=== PATIENT | female | born 1945 | race American Indian/Alaskan Native ===

== ENCOUNTER 2021-07-29 01:54 | Inpatient (IN) | payer MEDICARE ==
[2021-07-29] MEDS ORDERED: HYDROmorphone 1 MG/1 ML INJ IV ONE (03:56)
[2021-07-29] MEDS ORDERED: ONDANSETRON 4 MG/2 ML INJ IV ONE (03:58)
[2021-07-29 04:35] LABS: Mucus,Urine FEW /HPF
[2021-07-29 04:42] LABS: Bilirubin,Urine Negative (Negative); Blood,Urine Negative (Negative); Color,Urine Yellow (Yellow); Urobilinogen,Urine < 2.0 mg/dL (<2.0)
[2021-07-29 05:26] LABS: Basophils % (Auto) 0.4 % (0.0-1.8); Eosinophils # (Auto) 0.1 K/mm3 (0.0-0.4); Eosinophils % (Auto) 1.2 % (0.0-4.3); Hematocrit 32.6 % (30.3-42.9); Hemoglobin 10.3 gm/dl (10.1-14.3); Lymphocytes # (Auto) 1.7 K/mm3 (1.2-5.4); Lymphocytes % (Auto) 22.2 % (13.4-35.0); Mean Corpuscular HGB Conc 32 % (30-34); Mean Corpuscular Volume 81 fl (79-97); Monocytes # (Auto) 0.5 K/mm3 (0.0-0.8); Platelet Count 211 K/mm3 (140-440); Red Blood Count 4.05 M/mm3 (3.65-5.03); Red Cell Distribution Width 19.6 % (13.2-15.2)
[2021-07-29 05:38] LABS: Albumin 3.4 g/dL (3.9-5); Calcium 8.2 mg/dL (8.4-10.2)
--- NOTE | 2021-07-29 06:13 | Emergency Department Report ---
ED Abdominal Pain HPI - General Chief Complaint: Abdominal Pain Stated Complaint: SEVERE STOMACH PAIN PUI?: No Source: patient, family Mode of arrival: Wheelchair Limitations: No Limitations, Physical Limitation - History of Present Illness Initial Comments: This patient presented to the emergency department for evaluation of abdominal pain which had resolved by the time she was evaluated by me. For the past several days the patient has been having diarrhea without vomiting. She is able to tolerate p.o. fluids according to the patient as well as her daughter. She denies any dizziness fever or chills. The patient is currently on antibiotics for a sinus infection and is taking prednisone prescribed by her primary care physician Complaint: abdominal pain -: days(s) Time: 02:00 Location: diffuse Radiation: none Severity: moderate Severity scale (0 -10): 9 Quality: cramping Improves With: nothing Worsens With: nothing Associated Symptoms: diarrhea. denies: fever, dysuria - Related Data Home Medications Medication Instructions Recorded Confirmed Last Taken AtorvaSTATin [Lipitor] 20 mg PO QHS 07/30/21 07/30/21 Unknown Furosemide [Lasix] 40 mg PO QDAY 07/30/21 07/30/21 Unknown Metformin HCl [metFORMIN] 1,000 mg PO BID 07/30/21 07/30/21 Unknown Pantoprazole [Protonix] 40 mg PO QDAY 07/30/21 07/30/21 Unknown carvediloL [Coreg] 6.25 mg PO BID 07/30/21 07/30/21 Unknown hydrOXYzine HCL [Atarax] 25 mg PO Q8H PRN 07/30/21 07/30/21 Unknown Allergies Allergy/AdvReac Type Severity Reaction Status Date / Time Iodine and Iodide Containing Allergy Anaphylaxis Verified 07/30/21 15:40 Produc morphine Allergy Anaphylaxis Verified 07/30/21 15:40 ED Review of Systems ROS: Stated complaint: SEVERE STOMACH PAIN Other details as noted in HPI Comment: All other systems reviewed and negative Constitutional: denies: chills, fever Eyes: denies: eye pain, eye discharge, vision change ENT: denies: ear pain, throat pain Respiratory: denies: cough, shortness of breath, wheezing Cardiovascular: denies: chest pain, palpitations Endocrine: no symptoms reported Gastrointestinal: abdominal pain, diarrhea. denies: hematemesis, melena, hematochezia Genitourinary: denies: urgency, dysuria, discharge Musculoskeletal: denies: back pain, joint swelling, arthralgia Skin: denies: rash, lesions Neurological: headache. denies: weakness, paresthesias Psychiatric: denies: anxiety, depression Hematological/Lymphatic: denies: easy bleeding, easy bruising ED Past Medical Hx - Past Medical History Previous Medical History?: Yes - Surgical History Past Surgical History?: Yes - Medications Home Medications: Home Medications Medication Instructions Recorded Confirmed Last Taken Type AtorvaSTATin [Lipitor] 20 mg PO QHS 07/30/21 07/30/21 Unknown History Furosemide [Lasix] 40 mg PO QDAY 07/30/21 07/30/21 Unknown History Metformin HCl [metFORMIN] 1,000 mg PO BID 07/30/21 07/30/21 Unknown History Pantoprazole [Protonix] 40 mg PO QDAY 07/30/21 07/30/21 Unknown History carvediloL [Coreg] 6.25 mg PO BID 07/30/21 07/30/21 Unknown History hydrOXYzine HCL [Atarax] 25 mg PO Q8H PRN 07/30/21 07/30/21 Unknown History ED Physical Exam - General Limitations: No Limitations, Physical Limitation General appearance: alert, in no apparent distress - Eye Eye exam: Present: normal appearance, PERRL, EOMI - ENT ENT exam: Present: normal exam. Absent: mucous membranes moist - Neck Neck exam: Present: normal inspection, full ROM - Respiratory Respiratory exam: Present: normal lung sounds bilaterally. Absent: respiratory distress - Cardiovascular Cardiovascular Exam: Present: regular rate, normal rhythm. Absent: systolic murmur, diastolic murmur, rubs, gallop - GI/Abdominal GI/Abdominal exam: Present: soft, normal bowel sounds. Absent: tenderness - Rectal Rectal exam: Present: deferred - Extremities Exam Extremities exam: Present: normal inspection, full ROM - Neurological Exam Neurological exam: Present: alert - Psychiatric Psychiatric exam: Present: normal affect, normal mood ED Course Vital Signs 07/29/21 07/29/21 07/29/21 02:06 02:50 03:00 Temperature 98.3 F Pulse Rate 65 Respiratory 16 Rate Blood Pressure 105/48 122/45 Blood Pressure [Left] O2 Sat by Pulse 98 100 100 Oximetry 07/29/21 07/29/21 07/29/21 03:09 03:10 03:16 Temperature 98.9 F Pulse Rate Respiratory 19 Rate Blood Pressure 122/45 Blood Pressure [Left] O2 Sat by Pulse 98 100 Oximetry 07/29/21 07/29/21 07/29/21 03:30 03:46 04:00 Temperature Pulse Rate Respiratory Rate Blood Pressure 135/49 104/50 104/50 Blood Pressure [Left] O2 Sat by Pulse 100 100 100 Oximetry 07/29/21 07/29/21 07/29/21 04:05 04:16 04:30 Temperature Pulse Rate Respiratory 15 Rate Blood Pressure 125/56 108/45 Blood Pressure [Left] O2 Sat by Pulse 100 100 Oximetry 07/29/21 07/29/21 07/29/21 04:46 05:00 05:16 Temperature Pulse Rate Respiratory Rate Blood Pressure 106/46 106/46 102/42 Blood Pressure [Left] O2 Sat by Pulse 100 100 99 Oximetry 07/29/21 07/29/21 07/29/21 05:30 05:46 06:00 Temperature Pulse Rate Respiratory Rate Blood Pressure 104/44 104/50 124/46 Blood Pressure [Left] O2 Sat by Pulse 100 100 100 Oximetry 07/29/21 07/29/21 07/29/21 06:08 06:10 06:12 Temperature 97.9 F Pulse Rate Respiratory Rate Blood Pressure 117/45 117/45 Blood Pressure [Left] O2 Sat by Pulse 100 100 Oximetry 07/29/21 07/29/21 07/29/21 06:14 06:16 06:18 Temperature Pulse Rate Respiratory Rate Blood Pressure 117/45 117/45 117/45 Blood Pressure [Left] O2 Sat by Pulse 100 98 100 Oximetry 07/29/21 07/29/21 07/29/21 06:20 06:22 06:25 Temperature Pulse Rate Respiratory Rate Blood Pressure 117/45 117/45 113/44 Blood Pressure [Left] O2 Sat by Pulse 100 100 99 Oximetry 07/29/21 07/29/21 07/29/21 06:26 06:28 06:30 Temperature Pulse Rate Respiratory Rate Blood Pressure 113/44 113/44 113/44 Blood Pressure [Left] O2 Sat by Pulse 100 99 100 Oximetry 07/29/21 07/29/21 07/29/21 06:32 06:34 06:36 Temperature Pulse Rate Respiratory Rate Blood Pressure 113/44 113/44 113/44 Blood Pressure [Left] O2 Sat by Pulse 100 100 100 Oximetry 07/29/21 07/29/21 07/29/21 06:38 06:40 06:42 Temperature Pulse Rate Respiratory Rate Blood Pressure 113/44 125/73 125/73 Blood Pressure [Left] O2 Sat by Pulse 100 100 100 Oximetry 07/29/21 07/29/21 07/29/21 06:44 06:46 06:48 Temperature Pulse Rate Respiratory Rate Blood Pressure 125/73 125/73 125/73 Blood Pressure [Left] O2 Sat by Pulse 99 100 100 Oximetry 07/29/21 07/29/21 07/29/21 06:50 06:52 06:54 Temperature Pulse Rate Respiratory Rate Blood Pressure 125/73 125/73 125/73 Blood Pressure [Left] O2 Sat by Pulse 100 99 99 Oximetry 07/29/21 07/29/21 07/29/21 06:56 06:58 07:00 Temperature Pulse Rate Respiratory Rate Blood Pressure 108/46 108/46 108/46 Blood Pressure [Left] O2 Sat by Pulse 98 100 99 Oximetry 07/29/21 07/29/21 07/29/21 07:02 07:04 07:06 Temperature Pulse Rate Respiratory Rate Blood Pressure 108/46 108/46 108/46 Blood Pressure [Left] O2 Sat by Pulse 100 99 99 Oximetry 07/29/21 07/29/21 07/29/21 07:08 07:10 07:12 Temperature Pulse Rate Respiratory Rate Blood Pressure 108/46 126/52 126/52 Blood Pressure [Left] O2 Sat by Pulse 99 100 100 Oximetry 07/29/21 07/29/21 07/29/21 07:14 07:16 07:18 Temperature Pulse Rate Respiratory Rate Blood Pressure 126/52 126/52 126/52 Blood Pressure [Left] O2 Sat by Pulse 99 100 100 Oximetry 07/29/21 07/29/21 07/29/21 07:20 07:22 07:25 Temperature Pulse Rate Respiratory Rate Blood Pressure 126/52 126/52 132/57 Blood Pressure [Left] O2 Sat by Pulse 100 99 99 Oximetry 07/29/21 07/29/21 07/29/21 07:26 07:28 07:30 Temperature Pulse Rate Respiratory Rate Blood Pressure 132/57 132/57 132/57 Blood Pressure [Left] O2 Sat by Pulse 99 100 100 Oximetry 07/29/21 07/29/21 07/29/21 07:46 07:48 07:50 Temperature Pulse Rate Respiratory Rate Blood Pressure 132/57 132/57 132/57 Blood Pressure [Left] O2 Sat by Pulse 100 100 100 Oximetry 07/29/21 07/29/21 07/29/21 07:52 07:54 07:56 Temperature Pulse Rate Respiratory Rate Blood Pressure 132/57 132/57 133/41 Blood Pressure [Left] O2 Sat by Pulse 100 100 100 Oximetry 07/29/21 07/29/21 07/29/21 07:58 08:00 08:02 Temperature Pulse Rate 62 Respiratory Rate Blood Pressure 133/41 133/41 133/41 Blood Pressure 133/41 [Left] O2 Sat by Pulse 100 100 100 Oximetry 07/29/21 07/29/21 07/29/21 08:10 08:20 08:30 Temperature Pulse Rate Respiratory Rate Blood Pressure 123/53 123/53 125/46 Blood Pressure [Left] O2 Sat by Pulse 100 100 100 Oximetry 07/29/21 07/29/21 07/29/21 08:32 08:40 08:50 Temperature 97.8 F Pulse Rate 62 Respiratory 18 Rate Blood Pressure 133/41 125/46 136/49 Blood Pressure [Left] O2 Sat by Pulse 100 98 100 Oximetry 07/29/21 09:00 Temperature Pulse Rate Respiratory Rate Blood Pressure 148/59 Blood Pressure [Left] O2 Sat by Pulse 100 Oximetry ED Medical Decision Making - Lab Data Result diagrams: 07/30/21 07:08 07/31/21 04:18 - Medical Decision Making The patient's labs were reviewed and compared to her most recent admission. This was consistent with worsening renal failure and it would appear that she is experiencing acute on chronic renal failure. This most likely exacerbated by her diarrhea. I spoke with the hospitalist who agreed to admit the patient for further evaluation and nephrology consultation. The patient had previously been followed by a environmental sampler because of her renal issues. Critical care attestation.: If time is entered above; I have spent that time in minutes in the direct care of this critically ill patient, excluding procedure time. ED Disposition Clinical Impression: Enteritis, Dehydration Acute on chronic renal failure Qualifiers: Acute renal failure type: unspecified Chronic kidney disease stage: unspecified stage Qualified Code(s): N17.9 - Acute kidney failure, unspecified; N18.9 - Chronic kidney disease, unspecified Disposition: 09 ADMITTED INPATIENT Is pt being admited?: Yes Does the pt Need Aspirin: No Condition: Stable
[2021-07-29] MEDS ORDERED: SODIUM CHLORIDE 0.9% 1000 ML 1,000 ML IV SCH (06:15)
[2021-07-29] MEDS ORDERED: SODIUM CHLORIDE 0.9% 1000 ML 1,000 ML IV ONE (07:30)
--- NOTE | 2021-07-29 08:06 | History and Physical Report ---
History of Present Illness Date of examination: 07/29/21 Date of admission: 07/29/21 Chief complaint: ABDOMINAL PAIN, DIARRHEA History of present illness: Patient is a 76-year-old female with a past medical history of CAD s/p CABG and PCI(02/2021), hypertension, who presented to [facility] with complaint of abdominal pain with associated diarrhea x1 day. Patient was a poor historian is accompanied by a family member who describes that the patient was recently here in the hospital as described in our discharge summary where she was treated for acute exacerbation of her congestive heart failure. At that time she was noted to be taking her Lasix as needed and was instructed to take it daily. Shortly after discharge she was seen at [facility] where she was started on antibiotics for chronic sinusitis with Augmentin. This was about a week ago per the family member accompanying the patient will reports that a few days after the patient began to experience some poor p.o. intake nausea and day before admission reported multiple episodes of diarrhea. On arrival to the ER the abdominal pain which she had initially described as 5/10 intensity has resolved. But she was however noted to have creatinine of 2.2 above the initial presentation at the hospital of 1.4. It also appears that she continued to take her losartan which was at the time she was discharged from the hospital told to stop due to mildly increased creatinine at the time. She has not had any other diarrhea at this time she denies any fever. She denies any shortness of breath. Leg swelling is at baseline. Past History Past Medical History: hypertension, other (Anxiety, abdominal aneurysm) Past Surgical History: abd. aortic aneurysm repair, Other (Mechanical valve replacement (patient uncertain which valve), AICD, AAA repair defibrillator placement, open heart surgery)) Social history: full code. denies: smoking Family history: no significant family history Medications and Allergies Allergies Allergy/AdvReac Type Severity Reaction Status Date / Time Iodine and Iodide Containing AdvReac Anaphylaxis Verified 07/29/21 03:48 Produc morphine AdvReac Anaphylaxis Verified 07/29/21 03:48 Active Meds: Active Medications Acetaminophen (Acetaminophen 325 Mg Tab) 650 mg PO Q4H PRN PRN Reason: Pain MILD(1-3)/Fever >100.5/HARDING Aspirin (Aspirin 325 Mg Tab) 325 mg PO QDAY SONIA Atorvastatin Calcium (Atorvastatin 40 Mg Tab) 40 mg PO QHS SONIA Carvedilol (Carvedilol 6.25 Mg Tab) 6.25 mg PO BID [facility] Famotidine (Famotidine 20 Mg/2 Ml Inj) 10 mg IV BID [facility] Heparin Sodium (Porcine) (Heparin 5,000 Unit/1 Ml Vial) 5,000 unit SUB-Q Q8HR [facility] Hydroxyzine HCl (Hydroxyzine Hcl 25 Mg Tab) 25 mg PO Q6H PRN PRN Reason: Itching Sodium Chloride (Nacl 0.9% 1000 Ml) 1,000 mls @ 125 mls/hr IV ONCE ONE Stop: 07/29/21 15:29 Last Admin: 07/29/21 07:33 Dose: 125 mls/hr Naloxone HCl (Naloxone 0.4 Mg/1 Ml Inj) 0.1 mg IV Q2MIN PRN PRN Reason: Res Rate </= 8 or 02 SAT < 92% Nitroglycerin (Nitroglycerin 0.4 Mg Tab Subl) 0.4 mg SL .Q5MIN PRN PRN Reason: Chest Pain Ondansetron HCl (Ondansetron 4 Mg/2 Ml Inj) 4 mg IV Q4H PRN PRN Reason: Nausea And Vomiting Oxycodone/Acetaminophen (Oxycodone /Acetaminophen 5-325mg Tab) 1 tab PO Q6H PRN PRN Reason: Pain, Moderate (4-6) Senna (Sennosides 8.6 Mg Tab) 8.6 mg PO Q12HR [facility] Sodium Chloride (Sodium Chloride 0.9% 10 Ml Flush Syringe) 10 ml IV BID [facility] Sodium Chloride (Sodium Chloride 0.9% 10 Ml Flush Syringe) 10 ml IV PRN PRN PRN Reason: LINE FLUSH Temazepam (Temazepam 15 Mg Cap) 15 mg PO QHS [facility] Review of Systems All systems: negative Constitutional: no weight loss, no weight gain, no fever, no chills, no sweats, no night sweats, no fatigue, no weakness, no malaise, no lethargy, no chronic headaches, no poor appetite, no daytime sleepiness Gastrointestinal: abdominal pain, nausea, vomiting Exam - Physical Exam Narrative exam: VITAL SIGNS: Reviewed. GENERAL: The patient appears normally developed, Vital signs as documented. HEAD: No signs of head trauma. EYES: Pupils are equal. Extraocular motions intact. EARS: Hearing grossly intact. MOUTH: Oropharynx is normal. NECK: No adenopathy, no JVD. CHEST: (Pacemaker in placeleft anterior chest wall) Pocket intact. Chest with clear breath sounds bilaterally. No wheezes, rales, or rhonchi. CARDIAC: Regular rate and rhythm. S1 and S2, without murmurs, gallops, or rubs. VASCULAR: No Edema. Peripheral pulses normal and equal in all extremities. ABDOMEN: Soft, non tender and non distended. No rebound or guarding, and no masses palpated. Bowel Sounds normal. MUSCULOSKELETAL: SURGICAL SCAR, Good range of motion of all major joints. Extremities without clubbing, cyanosis. trace edema. NEUROLOGIC EXAM: Alert and oriented x 3 No focal sensory or strength deficits. Speech normal. Follows commands. PSYCHIATRIC: Mood normal. SKIN: detail exam as documented in skin assessment - Constitutional Vitals: Temp Pulse Resp BP Pulse Ox 97.9 F 62 15 133/41 100 07/29/21 06:08 07/29/21 08:00 07/29/21 04:05 07/29/21 08:02 07/29/21 08:02 Results - Labs CBC & Chem 7: 07/29/21 04:45 07/29/21 04:45 Labs: Laboratory Last Values WBC 7.9 K/mm3 (4.5-11.0) 07/29/21 04:45 RBC 4.05 M/mm3 (3.65-5.03) 07/29/21 04:45 Hgb 10.3 gm/dl (10.1-14.3) 07/29/21 04:45 Hct 32.6 % (30.3-42.9) 07/29/21 04:45 MCV 81 fl (79-97) 07/29/21 04:45 MCH 25 pg (28-32) L 07/29/21 04:45 MCHC 32 % (30-34) 07/29/21 04:45 RDW 19.6 % (13.2-15.2) H 07/29/21 04:45 Plt Count 211 K/mm3 (140-440) 07/29/21 04:45 Lymph % (Auto) 22.2 % (13.4-35.0) 07/29/21 04:45 Banner % (Auto) 6.0 % (0.0-7.3) 07/29/21 04:45 Eos % (Auto) 1.2 % (0.0-4.3) 07/29/21 04:45 Baso % (Auto) 0.4 % (0.0-1.8) 07/29/21 04:45 Lymph # (Auto) 1.7 K/mm3 (1.2-5.4) 07/29/21 04:45 Banner # (Auto) 0.5 K/mm3 (0.0-0.8) 07/29/21 04:45 Eos # (Auto) 0.1 K/mm3 (0.0-0.4) 07/29/21 04:45 Baso # (Auto) 0.0 K/mm3 (0.0-0.1) 07/29/21 04:45 Seg Neutrophils % 70.2 % (40.0-70.0) H 07/29/21 04:45 Seg Neutrophils # 5.5 K/mm3 (1.8-7.7) 07/29/21 04:45 Sodium 138 mmol/L (137-145) 07/29/21 04:45 Potassium 3.7 mmol/L (3.6-5.0) 07/29/21 04:45 Chloride 105.4 mmol/L (98-107) 07/29/21 04:45 Carbon Dioxide 19 mmol/L (22-30) L 07/29/21 04:45 Anion Gap 17 mmol/L 07/29/21 04:45 BUN 41 mg/dL (7-17) H 07/29/21 04:45 Creatinine 2.2 mg/dL (0.6-1.2) H 07/29/21 04:45 Estimated GFR 26 ml/min 07/29/21 04:45 BUN/Creatinine Ratio 19 % 07/29/21 04:45 Glucose 102 mg/dL (65-100) H 07/29/21 04:45 Calcium 8.2 mg/dL (8.4-10.2) L 07/29/21 04:45 Total Bilirubin 0.30 mg/dL (0.1-1.2) 07/29/21 04:45 AST 12 units/L (5-40) 07/29/21 04:45 ALT 10 units/L (7-56) 07/29/21 04:45 Alkaline Phosphatase 116 units/L (35-129) 07/29/21 04:45 Total Protein 6.9 g/dL (6.3-8.2) 07/29/21 04:45 Albumin 3.4 g/dL (3.9-5) L 07/29/21 04:45 Albumin/Globulin Ratio 1.0 % 07/29/21 04:45 Lipase 60 units/L (13-60) 07/29/21 04:45 Urine Color Yellow (Yellow) 07/29/21 04:21 Urine Turbidity Clear (Clear) 07/29/21 04:21 Urine pH 5.0 (5.0-7.0) 07/29/21 04:21 Ur Specific [place] 1.010 (1.003-1.030) 07/29/21 04:21 Urine Protein 30 mg/dl mg/dL (Negative) 07/29/21 04:21 Urine Glucose (UA) Negative mg/dL (Negative) 07/29/21 04:21 Urine Ketones Negative mg/dL (Negative) 07/29/21 04:21 Urine Blood Negative (Negative) 07/29/21 04:21 Urine Nitrite Negative (Negative) 07/29/21 04:21 Ur Reducing Substances Not Reportable 07/29/21 04:21 Urine Bilirubin Negative (Negative) 07/29/21 04:21 Urine Ictotest Not Reportable 07/29/21 04:21 Urine Urobilinogen < 2.0 mg/dL (<2.0) 07/29/21 04:21 Ur Leukocyte Esterase Negative (Negative) 07/29/21 04:21 Urine WBC (Auto) 7.0 /HPF (0.0-6.0) H 07/29/21 04:21 Urine RBC (Auto) 2.0 /HPF (0.0-6.0) 07/29/21 04:21 U Epithel Cells (Auto) 3.0 /HPF (0-13.0) 07/29/21 04:21 Urine Mucus Few /HPF 07/29/21 04:21 Assessment and Plan Assessment and plan: Patient is a 76-year-old female with a past medical history of CAD s/p CABG and PCI(02/2021), hypertension, who presented to [facility] with complaint of abdominal pain with associated diarrhea x1 day. Patient was a poor historian is accompanied by a family member who describes that the patient was recently here in the hospital as described in our discharge summary where she was treated for acute exacerbation of her congestive heart failure. At that time she was noted to be taking her Lasix as needed and was instructed to take it daily. Shortly after discharge she was seen at [facility] where she was started on antibiotics for chronic sinusitis with Augmentin. This was about a week ago per the family member accompanying the patient will reports that a few days after the patient began to experience some poor p.o. intake nausea and day before admission reported multiple episodes of diarrhea. On arrival to the ER the abdominal pain which she had initially described as 5/10 intensity has resolved. But she was however noted to have creatinine of 2.2 above the initial presentation at the hospital of 1.4. It also appears that she continued to take her losartan which was at the time she was discharged from the hospital told to stop due to mildly increased creatinine at the time. She has not had any other diarrhea at this time she denies any fever. She denies any shortness of breath. Leg swelling is at baseline. CT abdomen and pelvis: Pending Assessment Abdominal pain possible underlying enteritis rule out C. difficile considering recent antibiotic Diarrhea this could be bacterial or viral. Acute on chronic kidney disease with vasomotor nephropathy-multifactorial also Gastroenteritis Metabolic Acidosis Stable diastolic congestive heart failure CAD status post CABG and PCI(02/2021) AICD([employer] 02/2021) s/p AAA repair(05/21/2021), Anxiety disorder started recently due to multiple surgeries in the last 1 to 2- year Plan Admit to telemetry Gentle hydration and repeat BMP in 6 hours Nephrology and cardiology consult We will hold her losartan at this time due to worsening renal function We will also hold Lasix and probably restart in a.m. at a lower dose if renal function improves Patient had a recent ultrasound of the kidneys which was read as negative for any obstruction also will defer to nephrology for any other work-up. Await report of the CT abdomen and pelvis LFTs are within normal limits lipase is normal Plan of care discussed with the family and the patient in detail.. Advance Directives: Yes Plan of care discussed with patient/family: Yes
--- NOTE | 2021-07-29 08:11 | Cat Scan Report ---
CT ABDOMEN AND PELVIS WITHOUT CONTRAST HISTORY: abdominal pain. COMPARISON: None. TECHNIQUE: CT images of the abdomen and pelvis were obtained without administration of intravenous co ntrast. All CT scans at this location are performed using CT dose reduction for ALARA by means of au tomated exposure control. FINDINGS: Lungs/bones: There is mild patchy bibasilar airspace disease with no pleural effusion. Moderate card iomegaly is present with sternotomy change. Degenerative changes are present in the spine and the pel vis with nothing acute. Abdomen/pelvis: The liver is enlarged with no focal mass identified. The spleen, pancreas, adrenals, and proximal GI tract appear unremarkable. Punctate nonobstructive nephrolithiasis is seen in the up per pole of each kidney and there are tiny vascular calcifications. Abdominal aortic repair change ar e also present. There is a simple cystic structure measuring 13.2 x 8.8 cm in the left paracentral deep pelvis with s imple fluid attenuation. Urinary bladder is unremarkable. Uterus appears to be surgically absent. There is colonic diverticulo sis with mild inflammatory change along the proximal sigmoid colon. No abscess or free air to suggest bowel perforation. No bowel obstruction. IMPRESSION: 1. Acute uncomplicated sigmoid diverticulitis. 2. Large simple cystic structure in the deep pelvis just left of midline. Differential considerations include a cystic mass of left ovarian origin or a cystic structure related to prior hysterectomy (i. e. old seroma or lymphocele). 3. Mild patchy bibasilar airspace disease. 4. Additional incidental/postoperative findings as above. Signer Name: Tejinder Otero MD Signed: 07/29/2021 8:06 AM Workstation Name: [id number]
[2021-07-29] MEDS ORDERED: ONDANSETRON 4 MG/2 ML INJ IV PRN (09:00)
[2021-07-29] MEDS ORDERED: NALOXONE 0.4 MG/1 ML INJ IV PRN (09:00)
[2021-07-29] MEDS ORDERED: NITROGLYCERIN 0.4 MG TAB SUBL SL PRN (09:00)
[2021-07-29] MEDS ORDERED: ACETAMINOPHEN 325 MG TAB PO PRN (09:00)
[2021-07-29] MEDS: SENNOSIDES 8.6 MG TAB PO SCH ×2 (11:02→22:31)
[2021-07-29] MEDS: FAMOTIDINE 20 MG/2 ML INJ IV SCH ×2 (11:02→22:31)
[2021-07-29] MEDS: ASPIRIN 325 MG TAB PO SCH (11:02)
[2021-07-29] MEDS: carvediloL 6.25 MG TAB PO SCH ×2 (11:02→22:29)
--- NOTE | 2021-07-29 11:54 | Consultation ---
History of Present Illness Consult date: 07/29/21 Requesting physician: SIMONE MONTANO Consult reason: congestive heart failure History of present illness: Patient is a 76-year-old female with a past medical history of CAD s/p CABG and PCI(02/2021), AICD(Medtronic 02/2021), s/p AAA repair(05/21/2021), hypertension, who presented to [facility] with complaint of abdominal pain, nausea, diarrhea x3-4 days. Patient was recently seen at [facility] for chronic sinusitis and was discharged on antibiotics. Per patient few days after discharge she developed stomach pain with diarrhea and nausea. She also reports poor p.o. intake due to nausea. Patient described her stomach pain as previously 10 out of 10 however at time of interview she rated it as a 4 out of 10. She described it as a cramping pain with no exacerbating or relieving factors. Patient denies any complaint of chest pain, shortness of breath, diaphoresis, lightheadedness, or palpitations. Patient is previously by our practice during admission earlier this month. However patient reports she follows with cardiology at [place]. Cardiology is consulted for stable CHF. Past History Past Medical History: hypertension, other (Anxiety, abdominal aneurysm) Past Surgical History: abd. aortic aneurysm repair, Other (Mechanical valve replacement (patient uncertain which valve), AICD, AAA repair defibrillator placement, open heart surgery)) Social history: full code. denies: smoking Family history: no significant family history Medications and Allergies Allergies Allergy/AdvReac Type Severity Reaction Status Date / Time Iodine and Iodide Containing AdvReac Anaphylaxis Verified 07/29/21 03:48 Produc morphine AdvReac Anaphylaxis Verified 07/29/21 03:48 Active Meds: Active Medications Acetaminophen (Acetaminophen 325 Mg Tab) 650 mg PO Q4H PRN PRN Reason: Pain MILD(1-3)/Fever >100.5/HARDING Aspirin (Aspirin 325 Mg Tab) 325 mg PO QDAY [facility] Last Admin: 07/29/21 11:02 Dose: 325 mg Atorvastatin Calcium (Atorvastatin 40 Mg Tab) 40 mg PO QHS [facility] Carvedilol (Carvedilol 6.25 Mg Tab) 6.25 mg PO BID [facility] Last Admin: 07/29/21 11:02 Dose: 6.25 mg Famotidine (Famotidine 20 Mg/2 Ml Inj) 10 mg IV BID [facility] Last Admin: 07/29/21 11:02 Dose: 10 mg Heparin Sodium (Porcine) (Heparin 5,000 Unit/1 Ml Vial) 5,000 unit SUB-Q Q8HR [facility] Hydroxyzine HCl (Hydroxyzine Hcl 25 Mg Tab) 25 mg PO Q6H PRN PRN Reason: Itching Sodium Chloride (Nacl 0.9% 1000 Ml) 1,000 mls @ 125 mls/hr IV ONCE ONE Stop: 07/29/21 15:29 Last Admin: 07/29/21 07:33 Dose: 125 mls/hr Sodium Chloride (Nacl 0.9% 1000 Ml) 1,000 mls @ 75 mls/hr IV DIRECT [facility] Naloxone HCl (Naloxone 0.4 Mg/1 Ml Inj) 0.1 mg IV Q2MIN PRN PRN Reason: Res Rate </= 8 or 02 SAT < 92% Nitroglycerin (Nitroglycerin 0.4 Mg Tab Subl) 0.4 mg SL .Q5MIN PRN PRN Reason: Chest Pain Ondansetron HCl (Ondansetron 4 Mg/2 Ml Inj) 4 mg IV Q4H PRN PRN Reason: Nausea And Vomiting Oxycodone/Acetaminophen (Oxycodone /Acetaminophen 5-325mg Tab) 1 tab PO Q6H PRN PRN Reason: Pain, Moderate (4-6) Senna (Sennosides 8.6 Mg Tab) 8.6 mg PO Q12HR [facility] Last Admin: 07/29/21 11:02 Dose: 8.6 mg Sodium Chloride (Sodium Chloride 0.9% 10 Ml Flush Syringe) 10 ml IV BID [facility] Last Admin: 07/29/21 11:03 Dose: 10 ml Sodium Chloride (Sodium Chloride 0.9% 10 Ml Flush Syringe) 10 ml IV PRN PRN PRN Reason: LINE FLUSH Temazepam (Temazepam 15 Mg Cap) 15 mg PO QHS [facility] Review of Systems Constitutional: no weight loss, no weight gain, no fever, no chills Ears, nose, mouth and throat: no nasal discharge, no sinus pressure, no sinus pain Cardiovascular: no chest pain, no orthopnea, no palpitations, no rapid/irregular heart beat, no edema, no syncope, no lightheadedness, no shortness of breath, no dyspnea on exertion Respiratory: no shortness of breath, no dyspnea on exertion Gastrointestinal: abdominal pain, nausea, diarrhea Musculoskeletal: no neck stiffness, no neck pain, no shooting arm pain Integumentary: no rash, no pruritis, no redness Neurological: no head injury, no transient paralysis, no paralysis Psychiatric: no anxiety, no memory loss Endocrine: no cold intolerance, no heat intolerance Physical Examination Vital Signs Temp Pulse Resp BP Pulse Ox 98.3 F 65 16 105/48 98 07/29/21 02:06 07/29/21 02:06 07/29/21 02:06 07/29/21 02:06 07/29/21 02:06 General appearance: no acute distress HEENT: Positive: PERRL Neck: Positive: trachea midline Cardiac: Positive: Reg Rate and Rhythm Lungs: Positive: clear to auscultation, Normal Breath Sounds Neuro: Positive: Grossly Intact Abdomen: Positive: Soft, Active Bowel Sounds. Negative: Tender Skin: Negative: Rash, Suspicious Lesions, Ulceration Extremities: Present: upper extr. pulses. Absent: edema Results 07/29/21 04:45 07/29/21 04:45 Cardiac Enzymes 07/29/21 Range/Units 04:45 AST 12 (5-40) units/L CBC 07/29/21 Range/Units 04:45 WBC 7.9 (4.5-11.0) K/mm3 RBC 4.05 (3.65-5.03) M/mm3 Hgb 10.3 (10.1-14.3) gm/dl Hct 32.6 (30.3-42.9) % Plt Count 211 (140-440) K/mm3 Lymph # (Auto) 1.7 (1.2-5.4) K/mm3 [place] # (Auto) 0.5 (0.0-0.8) K/mm3 Eos # (Auto) 0.1 (0.0-0.4) K/mm3 Baso # (Auto) 0.0 (0.0-0.1) K/mm3 Comprehensive Metabolic Panel 07/29/21 Range/Units 04:45 Sodium 138 (137-145) mmol/L Potassium 3.7 (3.6-5.0) mmol/L Chloride 105.4 (98-107) mmol/L Carbon Dioxide 19 L (22-30) mmol/L BUN 41 H (7-17) mg/dL Creatinine 2.2 H (0.6-1.2) mg/dL Glucose 102 H (65-100) mg/dL Calcium 8.2 L (8.4-10.2) mg/dL AST 12 (5-40) units/L ALT 10 (7-56) units/L Alkaline Phosphatase 116 (35-129) units/L Total Protein 6.9 (6.3-8.2) g/dL Albumin 3.4 L (3.9-5) g/dL - Imaging and Cardiology Echo: report reviewed Assessment and Plan Patient is a 76-year-old female with a past medical history of CAD s/p CABG and PCI(02/2021), AICD(Medtronic 02/2021), s/p AAA repair(05/21/2021), hypertension, who presented to [facility] with complaint of abdominal pain, nausea, diarrhea x3-4 days Enteritis Abdominal pain LEONEL Chronic diastolic heart failure CAD s/p CABG S/p AICD S/p AAA repair Hypertension Medical noncompliance Echo 04/26/2021-Left ventricular ejection fraction is 50%. Low normal LV ejection fraction by Roche's biplane MOD. Basal inferolateral segment and basal inferior segment are abnormal.Mildly increased left ventricular wall thickness. There is moderately increased filling pressure consistent with grade 2 diastolic dysfunction. The left ventricular size is moderately dilated. Myocardial strain imaging was performed on a [employer] ultrasound system. Left ventricular (LV) longitudinal strain was abnormal at -10.2%. There is evidence of prior mitral repair wiht an annular ring. Mean gradient of 5 across the mitral valve. Moderate mitral valve regurgitation. Severely dilated left atrium. Mildly reduced right ventricular systolic function. Mildly enlarged right ventricular cavity size. The tricuspid annular plane systolic excursion is 1.8 cm. The portion of the abdominal aorta that was visualized appears to be aneurysmal. Outpatient medications: Coreg 3.125 mg p.o. twice daily, losartan 25 mg p.o. daily, Lasix 40 mg p.o. daily, atorvastatin 20 mg p.o. nightly, aspirin 325 mg p.o. daily Plan: No EKG in chart. EKG pending. Patient denies any complaints cardiac complaints including chest pain, shortness of breath, diaphoresis, palpitations Patient appears euvolemic on exam with no bilateral lower extremity edema and lungs are clear to auscultate of breath. Patient is not in acute exacerbation of heart failure Agree with Coreg, atorvastatin, aspirin Hold BRICE/ ARB and diuretic due to elevated creatinine Cardiac status otherwise stable Patient seen in conjunction with Dr. Wilder who agrees with this plan of care - Patient Problems (1) CAD (coronary artery disease) Current Visit: Yes Status: Acute (2) HTN (hypertension) Current Visit: Yes Status: Acute (3) Medical non-compliance Current Visit: Yes Status: Acute (4) Enteritis Current Visit: Yes Status: Acute (5) Dehydration Current Visit: Yes Status: Acute (6) Acute on chronic renal failure Current Visit: Yes Status: Acute
[2021-07-29] MEDS: HEPARIN 5,000 UNIT/1 ML VIAL SUB-Q SCH ×2 (14:55→22:30)
[2021-07-29] MEDS: SODIUM CHLORIDE 0.9% 1000 ML 1,000 ML IV SCH (15:01)
[2021-07-29 15:59] LABS: Calcium 8.3 mg/dL (8.4-10.2)
--- NOTE | 2021-07-29 17:28 | Consultation ---
History of Present Illness - Reason for Consult Consult date: 07/30/21 Requesting physician: SIMONE MONTANO - History of Present Illness 76-year-old lady with a history of coronary artery disease, congestive heart failure recently hospitalized at this institution with acute heart failure exacerbation. Creatinine was 1.4 during that admission and it was attributed to probably baseline hypertensive nephrosclerosis and chronic cardiorenal syndrome with possible exacerbation secondary to heart failure exacerbation. Patient was discharged home in stable condition on p.o. diuretics with instruction to hold losartan. Apparently she went back to taking it. She developed worsening sinus drainage and cough and was seen at [facility] where she was prescribed A ugmentin. A few days after starting this, she developed diarrhea with nausea. No vomiting. Stools were watery but no mucoid or bloody. No fever or chills. There has been no improvement even with the antibiotic regimen based weaned patient started getting weak and so came to the hospital for further evaluation. Creatinine is now up to 2.2. CT of the abdomen and pelvis showed acute uncomplicated sigmoid diverticulosis. Patchy bilateral airspace disease. I am consulted to assist in managing the kidney failure. Patient denies any voiding difficulties. No frequency, urgency, dysuria or hematuria. No history of kidney stones or recurrent kidney infections. No recent ingestion of nonst eroidal anti-inflammatory drugs. No recent exposure to radiocontrast. Past History Past Medical History: hypertension, renal failure, other (Anxiety, abdominal aneurysm) Past Surgical History: abd. 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 denies: smoking (Quit smoking 1 year ago) Family history: no significant family history, CAD (1 sister of acute myocardial infarction), cancer (1 sister of lung cancer, another acute pulmonary embolism and another had myocardial infarction. She does not know the cause of of her brother.) Medications and Allergies Allergies Allergy/AdvReac Type Severity Reaction Status Date / Time Iodine and Iodide Containing AdvReac Anaphylaxis Verified 07/29/21 03:48 Produc morphine AdvReac Anaphylaxis Verified 07/29/21 03:48 Home Medications Medication Instructions Recorded Confirmed Last Taken Type metFORMIN 1,000 mg BID 07/29/21 07/29/21 Unknown History Active Meds: Active Medications Acetaminophen (Acetaminophen 325 Mg Tab) 650 mg PO Q4H PRN PRN Reason: Pain MILD(1-3)/Fever >100.5/HARDING Aspirin (Aspirin 325 Mg Tab) 325 mg PO QDAY [facility] Last Admin: 07/29/21 11:02 Dose: 325 mg Atorvastatin Calcium (Atorvastatin 40 Mg Tab) 40 mg PO QHS [facility] Carvedilol (Carvedilol 6.25 Mg Tab) 6.25 mg PO BID [facility] Last Admin: 07/29/21 11:02 Dose: 6.25 mg Famotidine (Famotidine 20 Mg/2 Ml Inj) 10 mg IV BID [facility] Last Admin: 07/29/21 11:02 Dose: 10 mg Heparin Sodium (Porcine) (Heparin 5,000 Unit/1 Ml Vial) 5,000 unit SUB-Q Q8HR [facility] Last Admin: 07/29/21 14:55 Dose: 5,000 unit Hydroxyzine HCl (Hydroxyzine Hcl 25 Mg Tab) 25 mg PO Q6H PRN PRN Reason: Itching Sodium Chloride (Nacl 0.9% 1000 Ml) 1,000 mls @ 75 mls/hr IV DIRECT [facility] Last Admin: 07/29/21 15:01 Dose: 75 mls/hr Naloxone HCl (Naloxone 0.4 Mg/1 Ml Inj) 0.1 mg IV Q2MIN PRN PRN Reason: Res Rate </= 8 or 02 SAT < 92% Nitroglycerin (Nitroglycerin 0.4 Mg Tab Subl) 0.4 mg SL .Q5MIN PRN PRN Reason: Chest Pain Ondansetron HCl (Ondansetron 4 Mg/2 Ml Inj) 4 mg IV Q4H PRN PRN Reason: Nausea And Vomiting Oxycodone/Acetaminophen (Oxycodone /Acetaminophen 5-325mg Tab) 1 tab PO Q6H PRN PRN Reason: Pain, Moderate (4-6) Senna (Sennosides 8.6 Mg Tab) 8.6 mg PO Q12HR [facility] Last Admin: 07/29/21 11:02 Dose: 8.6 mg Sodium Chloride (Sodium Chloride 0.9% 10 Ml Flush Syringe) 10 ml IV BID [facility] Last Admin: 07/29/21 11:03 Dose: 10 ml Sodium Chloride (Sodium Chloride 0.9% 10 Ml Flush Syringe) 10 ml IV PRN PRN PRN Reason: LINE FLUSH Temazepam (Temazepam 15 Mg Cap) 15 mg PO QHS [facility] Review of Systems All systems: negative Respiratory: cough with sputum (Sometimes clear sometimes mildly yellowish) Hematologic/Lymphatic: other (Nosebleed 3 weeks ago.) Exam - Vital Signs Vital signs: Vital Signs Temp Pulse Resp BP Pulse Ox 98.3 F 65 16 105/48 98 07/29/21 02:06 07/29/21 02:06 07/29/21 02:06 07/29/21 02:06 07/29/21 02:06 - Physical Exam Narrative exam: Elderly -Liberian female lying in bed in no acute distress HEENT: NCAT, pink oral mucous membrane Neck: Supple, no venous distention CVS: S1S2 RRR with systolic murmur, rub or gallop Chest: Clear to auscultation Abdomen: Protuberant, soft, nontender, no organomegaly, bowel sounds are present Extremities: No edema Genitourinary deferred Skin warm and dry Neuro: Awake, alert no focal deficits Results - Lab Results 07/30/21 07:08 07/30/21 07:08 Most recent lab results Calcium 8.3 mg/dL (8.4-10.2) L 07/29/21 15:18 Assessment and Plan - Patient Problems (1) Acute kidney injury Current Visit: Yes Status: Acute Plan to address problem: Probably acute kidney injury secondary to volume depletion secondary to diarrhea. Quantify proteinuria and check fractional excretion of sodium. Continue volume repletion monitoring for signs of volume overload. Follow-up electrolytes and renal function. (2) Hypertensive chronic kidney disease with stage 1 through stage 4 chronic kidney disease, or unspecified chronic kidney disease Current Visit: Yes Status: Acute Plan to address problem: Follow-up blood pressure on current medications (3) Chronic kidney disease, stage 3 unspecified Current Visit: Yes Status: Acute Plan to address problem: Presumed hypertensive nephrosclerosis/chronic cardiorenal syndrome. (4) Sigmoid diverticulosis Current Visit: Yes Status: Acute Plan to address problem: No intervention necessary at this point. Avoid constipation (5) CAD (coronary artery disease) Current Visit: Yes Status: Acute Plan to address problem: Continue management by Cardiology. No symptoms to suggest exacerbation so far (6) Diarrhea Current Visit: Yes Status: Acute Plan to address problem: Diarrhea has appears to have resolved. Continue management by primary attending
[2021-07-29] MEDS: TEMAZEPAM 15 MG CAP PO SCH (22:31)
[2021-07-30] MEDS: HEPARIN 5,000 UNIT/1 ML VIAL SUB-Q SCH ×3 (06:00→21:24)
[2021-07-30 07:45] LABS: Basophils % (Auto) 0.3 % (0.0-1.8); Eosinophils # (Auto) 0.3 K/mm3 (0.0-0.4); Eosinophils % (Auto) 4.2 % (0.0-4.3); Hematocrit 31.1 % (30.3-42.9); Hemoglobin 9.7 gm/dl (10.1-14.3); Lymphocytes # (Auto) 2.6 K/mm3 (1.2-5.4); Lymphocytes % (Auto) 43.9 % (13.4-35.0); Mean Corpuscular HGB Conc 31 % (30-34); Mean Corpuscular Volume 82 fl (79-97); Monocytes # (Auto) 0.3 K/mm3 (0.0-0.8); Monocytes % (Auto) 5.4 % (0.0-7.3); Platelet Count 192 K/mm3 (140-440); Red Blood Count 3.81 M/mm3 (3.65-5.03); Red Cell Distribution Width 19.9 % (13.2-15.2)
[2021-07-30 07:48] LABS: Calcium 8.3 mg/dL (8.4-10.2)
[2021-07-30] MEDS: FAMOTIDINE 10 MG TAB PO SCH ×2 (09:53→21:24)
[2021-07-30] MEDS: carvediloL 6.25 MG TAB PO SCH ×2 (09:53→21:24)
[2021-07-30] MEDS: ASPIRIN 325 MG TAB PO SCH (09:53)
--- NOTE | 2021-07-30 10:09 | Electrocardiograph Report ---
[facility] Test Date: 2021-07-29 Test Time: 11:54:17 Pat Name: VALERIA BENDER Department: Room: A484 1 Gender: F Tax Associate Attorney: ANDREA : 1945 Requested By: ASHLEY AGUILERA Order Number: [id number] Reading MD: Jhonatan Mitchell Measurements Intervals Pansey Rate: 60 P: FL: 217 QRS: 42 QRSD: 108 T: 196 QT: 461 QTc: 461 Interpretive Statements Atrial-paced complexes PRWP Borderline prolonged FL interval Abnormal T, consider ischemia, lateral leads Borderline ST elevation, inferior leads No previous ECG available for comparison Electronically Signed On 07-30-2021 10:08:57 EDT by Jhonatan Mitchell
--- NOTE | 2021-07-30 12:10 | Progress Note ---
Assessment and Plan Patient is a 76-year-old female with a past medical history of CAD s/p CABG and PCI(02/2021), AICD(Medtronic 02/2021), s/p AAA repair(05/21/2021), hypertension, who presented to [facility] with complaint of abdominal pain, nausea, diarrhea x3-4 days Enteritis Abdominal pain LEONEL-nephrology following Chronic diastolic heart failure CAD s/p CABG S/p AICD S/p AAA repair Hypertension Medical noncompliance Echo 04/26/2021-Left ventricular ejection fraction is 50%. Low normal LV ejection fraction by Roche's biplane MOD. Basal inferolateral segment and basal inferior segment are abnormal.Mildly increased left ventricular wall thickness. There is moderately increased filling pressure consistent with grade 2 diastolic dysfunction. The left ventricular size is moderately dilated. Myocardial strain imaging was performed on a [employer] ultrasound system. Left ventricular (LV) longitudinal strain was abnormal at -10.2%. There is evidence of prior mitral repair wiht an annular ring. Mean gradient of 5 across the mitral valve. Moderate mitral valve regurgitation. Severely dilated left atrium. Mildly reduced right ventricular systolic function. Mildly enlarged right ventricular cavity size. The tricuspid annular plane systolic excursion is 1.8 cm. The portion of the abdominal aorta that was visualized appears to be aneurysmal. Outpatient medications: Coreg 3.125 mg p.o. twice daily, losartan 25 mg p.o. daily, Lasix 40 mg p.o. daily, atorvastatin 20 mg p.o. nightly, aspirin 325 mg p.o. daily Plan: Patient appears euvolemic on exam with no bilateral lower extremity edema and lungs are clear to auscultate of breath. Patient is not in acute exacerbation of heart failure Agree with Coreg, atorvastatin, aspirin Hold BRICE/ ARB and diuretic due to elevated creatinine Cardiac status otherwise stable. Will see as needed Patient should follow-up with her primary residential aide in 1 to 2 weeks after discharge Patient seen in conjunction with Dr. Wilder who agrees with this plan of care - Patient Problems (1) CAD (coronary artery disease) Current Visit: Yes Status: Acute (2) HTN (hypertension) Current Visit: Yes Status: Acute (3) Medical non-compliance Current Visit: Yes Status: Acute (4) Enteritis Current Visit: Yes Status: Acute (5) Dehydration Current Visit: Yes Status: Acute (6) Acute on chronic renal failure Current Visit: Yes Status: Acute Subjective Date of service: 07/30/21 Principal diagnosis: Abdominal pain, diarrhea Interval history: Patient resting in bed in no acute distress 60s on monitor no events Paced rhythm 60s no events Objective Vital Signs Temp Pulse Resp BP Pulse Ox 07/30/21 10:00 98 07/30/21 08:08 98.8 F 60 18 135/55 94 07/30/21 08:00 60 07/30/21 03:34 97.5 F L 16 93/38 07/29/21 23:28 98.0 F 70 16 102/42 95 07/29/21 23:26 96 07/29/21 23:11 112 H 22 124/68 99 07/29/21 23:01 110 H 23 117/71 98 07/29/21 22:51 109 H 16 127/69 99 07/29/21 22:41 106 H 17 127/69 98 07/29/21 22:31 110 H 18 123/72 98 07/29/21 22:29 110 H 120/76 07/29/21 22:21 112 H 18 122/73 98 07/29/21 22:11 115 H 16 122/73 99 07/29/21 22:01 113 H 17 138/79 98 07/29/21 22:00 96 07/29/21 21:50 102 H 14 119/67 98 07/29/21 21:40 107 H 14 125/76 100 07/29/21 21:30 110 H 18 138/77 99 07/29/21 21:20 110 H 20 138/77 98 07/29/21 21:10 109 H 20 124/75 98 07/29/21 21:00 109 H 21 124/75 99 07/29/21 20:50 115 H 19 138/79 99 07/29/21 20:40 110 H 19 138/79 100 07/29/21 20:30 112 H 14 135/79 100 07/29/21 20:20 110 H 19 135/79 99 07/29/21 20:10 108 H 21 140/77 99 07/29/21 20:00 112 H 18 138/79 98 07/29/21 19:50 114 H 12 138/79 100 07/29/21 19:40 113 H 10 L 128/71 99 07/29/21 19:30 111 H 13 127/75 99 07/29/21 19:20 108 H 17 127/75 99 07/29/21 19:10 107 H 17 117/78 99 07/29/21 19:00 105 H 16 124/68 98 07/29/21 18:50 109 H 24 124/68 98 07/29/21 18:40 104 H 11 L 134/70 99 07/29/21 18:30 101 H 15 127/76 97 07/29/21 18:20 106 H 16 127/76 99 07/29/21 18:10 108 H 16 135/77 100 07/29/21 18:00 102 H 17 132/74 98 07/29/21 17:57 105 H 17 132/74 99 07/29/21 17:50 104 H 20 132/74 99 07/29/21 17:40 102 H 18 132/74 99 07/29/21 17:30 106 H 18 131/78 98 07/29/21 17:20 106 H 16 110/69 99 07/29/21 17:12 110/69 07/29/21 17:02 114/64 07/29/21 16:17 97.0 F L 76 18 152/72 99 - Physical Examination General: No Apparent Distress HEENT: Positive: PERRL Neck: Positive: trachea midline Cardiac: Positive: Reg Rate and Rhythm Lungs: Positive: Normal Breath Sounds Neuro: Positive: Grossly Intact Abdomen: Positive: Soft, Active Bowel Sounds. Negative: Tender Skin: Negative: Rash, Suspicious Lesions, Ulceration Extremities: Present: upper extr. pulses. Absent: edema - Labs and Meds CBC 07/30/21 Range/Units 07:08 WBC 6.0 (4.5-11.0) K/mm3 RBC 3.81 (3.65-5.03) M/mm3 Hgb 9.7 L (10.1-14.3) gm/dl Hct 31.1 (30.3-42.9) % Plt Count 192 (140-440) K/mm3 Lymph # (Auto) 2.6 (1.2-5.4) K/mm3 [place] # (Auto) 0.3 (0.0-0.8) K/mm3 Eos # (Auto) 0.3 (0.0-0.4) K/mm3 Baso # (Auto) 0.0 (0.0-0.1) K/mm3 Comprehensive Metabolic Panel 07/29/21 07/30/21 Range/Units 15:18 07:08 Sodium 140 141 (137-145) mmol/L Potassium 3.7 4.1 (3.6-5.0) mmol/L Chloride 108.2 H 109.4 H (98-107) mmol/L Carbon Dioxide 20 L 21 L (22-30) mmol/L BUN 39 H 34 H (7-17) mg/dL Creatinine 2.0 H 2.2 H (0.6-1.2) mg/dL Glucose 96 78 (65-100) mg/dL Calcium 8.3 L 8.3 L (8.4-10.2) mg/dL - Imaging and Cardiology Echo: report reviewed - Telemetry EKG Rhythm: Paced
[2021-07-30] MEDS: hydrOXYzine HCL 25 MG TAB PO PRN (13:23)
--- NOTE | 2021-07-30 15:37 | Progress Note ---
Assessment and Plan Patient is a 76-year-old female with a past medical history of CAD s/p CABG and PCI(02/2021), hypertension, who presented to [facility] with complaint of abdominal pain with associated diarrhea x1 day. On arrival to the ER the abdominal pain w hich she had initially described as 5/10 intensity has resolved. But she was however noted to have creatinine of 2.2 above the initial presentation at the hospital of 1.4. It also appears that she continued to take her losartan which was at the time she was discharged from the hospital told to stop due to mildly increased creatinine at the time. CT abdomen and pelvis: 1. Acute uncomplicated sigmoid diverticulitis. 2. Large simple cystic structure in the deep pelvis just left of midline. Differential considerations include a cystic mass of left ovarian origin or a cystic structure related to prior hysterectomy (i.e. old seroma or lymphocele). 3. Mild patchy bibasilar airspace disease. 4. Additional incidental/postoperative findings as above. Assessment Abdominal pain possible underlying enteritis likely from C. difficile con sidering recent antibiotic Acute on chronic kidney disease with vasomotor nephropathy-multifactorial also Gastroenteritis Metabolic Acidosis Stable diastolic congestive heart failure CAD status post CABG and PCI(02/2021) AICD([employer] 02/2021) s/p AAA repair(05/21/2021), Anxiety disorder started recently due to multiple surgeries in the last 1 to 2- year Left pelvis cystic mass Plan Gentle hydration and repeat BMP Nephrology and cardiology consult We will hold her losartan at this time due to worsening renal function We will also hold Lasix and probably restart in a.m. at a lower dose if renal function improves Patient had a recent ultrasound of the kidneys which was read as negative for any obstruction also will defer to nephrology for any other work-up. LFTs are within normal limits lipase is normal Will initiate p.o. vancomycin for possible C. difficile colitis We will also order pelvic ultrasound to further characterize left pelvic cystic mass Continue to follow clinically, Subjective Date of service: 07/30/21 Principal diagnosis: Abdominal pain, diarrhea Interval history: Patient seen and examined. Medical records and medication list reviewed. No acute event overnight noted by the RN. Patient continued to have diarrhea Discussed plan of care at bedside with patient. Objective - Exam Narrative Exam: GENERAL: well-developed elderly -[place]ub[place] female lying on bed appeared t o be in no discomfort. HEENT: Normocephalic. Atraumatic. No conjunctival congestion or icterus. P atient has moist mucous membranes. NECK: Supple. Trachea midline. CHEST/LUNGS: Clear to auscultated bilaterally, breathing nonlabored. No wheezes crackles or rhonchi. HEART/CARDIOVASCULAR: Regular in rate and rhythm. S1 and S2 positive. ABDOMEN: Abdomen is soft, nontender. Patient has normal bowel sounds. SKIN: There is no rash. Warm and dry. NEURO: No focal motor deficit. Follows command. MUSCULOSKELETAL: No joint effusion or tenderness. EXTRIMITY: No edema, no cyanosis or clubbing. PSYCH: Cooperative. - Constitutional Vitals: Vital Signs - 12hr 07/30/21 07/30/21 07/30/21 08:00 08:08 10:00 Temperature 98.8 F Pulse Rate 60 60 Respiratory 18 Rate Blood Pressure 135/55 O2 Sat by Pulse 94 98 Oximetry 07/30/21 12:03 Temperature 97.8 F Pulse Rate 65 Respiratory 18 Rate Blood Pressure 139/66 O2 Sat by Pulse 97 Oximetry - Labs CBC & Chem 7: 07/30/21 07:08 07/31/21 04:18 Labs: Abnormal lab results 07/29/21 07/30/21 07/30/21 Range/Units 15:18 07:08 07:08 Hgb 9.7 L (10.1-14.3) gm/dl MCH 26 L (28-32) pg RDW 19.9 H (13.2-15.2) % Lymph % (Auto) 43.9 H (13.4-35.0) % Chloride 108.2 H 109.4 H (98-107) mmol/L Carbon Dioxide 20 L 21 L (22-30) mmol/L BUN 39 H 34 H (7-17) mg/dL Creatinine 2.0 H 2.2 H (0.6-1.2) mg/dL POC Glucose (70-105) mg/dL Calcium 8.3 L 8.3 L (8.4-10.2) mg/dL 07/30/21 Range/Units 12:03 Hgb (10.1-14.3) gm/dl MCH (28-32) pg RDW (13.2-15.2) % Lymph % (Auto) (13.4-35.0) % Chloride (98-107) mmol/L Carbon Dioxide (22-30) mmol/L BUN (7-17) mg/dL Creatinine (0.6-1.2) mg/dL POC Glucose 111 H (70-105) mg/dL Calcium (8.4-10.2) mg/dL
[2021-07-30] MEDS: VANCOMYCIN 250 MG/10 ML ORAL LIQD PO SCH (17:47)
[2021-07-30] MEDS: TEMAZEPAM 15 MG CAP PO SCH (21:24)
[2021-07-31] MEDS: VANCOMYCIN 250 MG/10 ML ORAL LIQD PO SCH ×4 (00:02→18:04)
[2021-07-31] MEDS: oxyCODONE /ACETAMINOPHEN 5-325MG TAB PO PRN ×2 (00:45→08:53)
[2021-07-31] MEDS: SODIUM CHLORIDE 0.9% 1000 ML 1,000 ML IV SCH ×2 (05:06→18:07)
[2021-07-31] MEDS: HEPARIN 5,000 UNIT/1 ML VIAL SUB-Q SCH ×3 (05:07→21:11)
[2021-07-31 05:21] LABS: Calcium 7.9 mg/dL (8.4-10.2)
[2021-07-31] MEDS: hydrOXYzine HCL 25 MG TAB PO PRN (08:54)
[2021-07-31] MEDS: carvediloL 6.25 MG TAB PO SCH ×2 (09:00→21:10)
[2021-07-31] MEDS: ASPIRIN 325 MG TAB PO SCH (09:00)
[2021-07-31] MEDS: FAMOTIDINE 10 MG TAB PO SCH ×2 (09:00→21:08)
--- NOTE | 2021-07-31 10:16 | Progress Note ---
Assessment and Plan - Patient Problems (1) Acute kidney injury Current Visit: Yes Status: Acute Plan to address problem: Probably acute kidney injury secondary to volume depletion secondary to diarrhea. Discontinue intravenous fluids after the current bag. Resume p.o. Lasix in the morning. Follow-up electrolytes and renal function. Discharge planning by primary attending. 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 (4) Sigmoid diverticulosis Current Visit: Yes Status: Acute Plan to address problem: No intervention necessary at this point. Avoid constipation (5) CAD (coronary artery disease) Current Visit: Yes Status: Acute Plan to address problem: Continue management by Cardiology. No symptoms to suggest exacerbation so far (6) Diarrhea Current Visit: Yes Status: Acute Plan to address problem: Diarrhea has appears to have resolved. Unable to give a stool sample. Probably not needed anymore since it has resolved. Continue management by primary attending Subjective Date of service: 07/31/21 Principal diagnosis: Abdominal pain, diarrhea Interval history: Patient seen lying in bed. Granddaughter and sister at the bedside. She has no new complaints. No nausea vomiting. No diarrhea since she was admitted. No abdominal pain. Denies shortness of breath Objective - Exam Narrative Exam: Elderly -Niuean female lying in bed in no acute distress HEENT: NCAT, pink conjunctiva, anicteric sclera Neck: Supple, no venous distention CVS: S1S2 RRR with systolic murmur, rub or gallop Chest: Clear to auscultation Abdomen: Protuberant, soft, nontender, no organomegaly, bowel sounds are present Extremities: No edema Genitourinary deferred Skin warm and dry Neuro: Awake, alert no focal deficits - Vital Signs Vital signs: Vital Signs - 12hr 07/30/21 07/31/21 07/31/21 23:18 03:34 08:01 Temperature 98.9 F 98.3 F 97.8 F Pulse Rate 61 53 L 60 Respiratory 18 16 18 Rate Blood Pressure 108/46 114/45 147/63 O2 Sat by Pulse 93 92 97 Oximetry 03/19/22 09:00 Temperature Pulse Rate Respiratory Rate Blood Pressure 147/63 O2 Sat by Pulse Oximetry - Lab 07/30/21 07:08 07/31/21 04:18 Most recent lab results Calcium 7.9 mg/dL (8.4-10.2) L 07/31/21 04:18 Magnesium 2.00 mg/dL (1.7-2.3) 07/31/21 04:18 Medications & Allergies - Medications Allergies/Adverse Reactions: Allergies Iodine and Iodide Containing Produc Allergy (Verified 07/30/21 15:40) Anaphylaxis morphine Allergy (Verified 07/30/21 15:40) Anaphylaxis Home Medications: Home Medications Medication Instructions Recorded Confirmed Last Taken Type AtorvaSTATin [Lipitor] 20 mg PO QHS 07/30/21 07/30/21 Unknown History Furosemide [Lasix] 40 mg PO QDAY 07/30/21 07/30/21 Unknown History Metformin HCl [metFORMIN] 1,000 mg PO BID 07/30/21 07/30/21 Unknown History Pantoprazole [Protonix] 40 mg PO QDAY 07/30/21 07/30/21 Unknown History carvediloL [Coreg] 6.25 mg PO BID 07/30/21 07/30/21 Unknown History hydrOXYzine HCL [Atarax] 25 mg PO Q8H PRN 07/30/21 07/30/21 Unknown History Active Medications: Generic Name Dose Route Start Last Admin Trade Name Freq PRN Reason Stop Dose Admin Acetaminophen 650 mg 07/29/21 09:00 Acetaminophen 325 Mg Tab PO Q4H PRN Pain MILD(1-3)/Fever >100.5/HARDING Aspirin 325 mg 07/29/21 10:00 07/31/21 09:00 Aspirin 325 Mg Tab PO 325 mg QDAY SONIA Administration Atorvastatin Calcium 40 mg 07/29/21 22:00 07/30/21 21:24 Atorvastatin 40 Mg Tab PO 40 mg QHS SONIA Administration Carvedilol 6.25 mg 07/29/21 10:00 07/31/21 09:00 Carvedilol 6.25 Mg Tab PO 6.25 mg BID SONIA Administration Famotidine 10 mg 07/30/21 10:00 07/31/21 09:00 Famotidine 10 Mg Tab PO 10 mg BID SONIA Administration Heparin Sodium (Porcine) 5,000 unit 07/29/21 14:00 07/31/21 05:07 Heparin 5,000 Unit/1 Ml Vial SUB-Q 5,000 unit Q8HR SONIA Administration Hydroxyzine HCl 25 mg 07/29/21 09:00 07/31/21 08:54 Hydroxyzine Hcl 25 Mg Tab PO 25 mg Q6H PRN Administration Itching Sodium Chloride 1,000 mls @ 75 mls/hr 07/29/21 09:00 07/31/21 05:06 Nacl 0.9% 1000 Ml IV 75 mls/hr DIRECT SONIA Administration Naloxone HCl 0.1 mg 07/29/21 09:00 Naloxone 0.4 Mg/1 Ml Inj IV Q2MIN PRN Res Rate </= 8 or 02 SAT < 92% Nitroglycerin 0.4 mg 07/29/21 09:00 Nitroglycerin 0.4 Mg Tab Subl SL .Q5MIN PRN Chest Pain Ondansetron HCl 4 mg 07/29/21 09:00 07/30/21 13:23 Ondansetron 4 Mg/2 Ml Inj IV 4 mg Q4H PRN Administration Nausea And Vomiting Oxycodone/Acetaminophen 1 tab 07/29/21 09:00 07/31/21 08:53 Oxycodone /Acetaminophen 5-325mg Tab PO 1 tab Q6H PRN Administration Pain, Moderate (4-6) Sodium Chloride 10 ml 07/29/21 10:00 07/31/21 09:00 Sodium Chloride 0.9% 10 Ml Flush Syringe IV 10 ml BID SONIA Administration Sodium Chloride 10 ml 07/29/21 09:00 Sodium Chloride 0.9% 10 Ml Flush Syringe IV PRN PRN LINE FLUSH Temazepam 15 mg 07/29/21 22:00 07/30/21 21:24 Temazepam 15 Mg Cap PO 15 mg QHS SONIA Administration Vancomycin HCl 125 mg 07/31/21 12:00 Vancomycin 250 Mg/10 Ml Oral Liqd PO Q6HR [facility] Protocol
--- NOTE | 2021-07-31 13:31 | Progress Note ---
Assessment and Plan Patient is a 76-year-old female with a past medical history of CAD s/p CABG and PCI(02/2021), hypertension, who presented to [facility] with complaint of abdominal pain with associated diarrhea x1 day. On arrival to the ER the abdominal pain w hich she had initially described as 5/10 intensity has resolved. But she was however noted to have creatinine of 2.2 above the initial presentation at the hospital of 1.4. It also appears that she continued to take her losartan which was at the time she was discharged from the hospital told to stop due to mildly increased creatinine at the time. CT abdomen and pelvis: 1. Acute uncomplicated sigmoid diverticulitis. 2. Large simple cystic structure in the deep pelvis just left of midline. Differential considerations include a cystic mass of left ovarian origin or a cystic structure related to prior hysterectomy (i.e. old seroma or lymphocele). 3. Mild patchy bibasilar airspace disease. 4. Additional incidental/postoperative findings as above. Assessment Abdominal pain possible underlying enteritis likely from C. difficile con sidering recent antibiotic Acute on chronic kidney disease with vasomotor nephropathy-multifactorial also Gastroenteritis Metabolic Acidosis Stable diastolic congestive heart failure CAD status post CABG and PCI(02/2021) AICD([employer] 02/2021) s/p AAA repair(05/21/2021), Anxiety disorder started recently due to multiple surgeries in the last 1 to 2- year Left pelvis cystic mass Plan Gentle hydration and repeat BMP Nephrology and cardiology consult We will hold her losartan at this time due to worsening renal function We will also hold Lasix and probably restart in a.m. at a lower dose if renal function improves Patient had a recent ultrasound of the kidneys which was read as negative for any obstruction also will defer to nephrology for any other work-up. LFTs are within normal limits lipase is normal Will initiate p.o. vancomycin for possible C. difficile colitis We will also need pelvic ultrasound to further characterize left pelvic cystic mass - outpt Continue to follow clinically, Possible DC in the morning if renal function improves Subjective Date of service: 07/31/21 Principal diagnosis: Abdominal pain, diarrhea Interval history: Patient seen and examined. Medical records and medication list reviewed. No acute event overnight noted by the RN. Patient states that her diarrhea resolved Discussed plan of care at bedside with patient. Objective - Exam Narrative Exam: GENERAL: well-developed elderly -Vietnamese female lying on bed appeared to be in no discomfort. HEENT: Normocephalic. Atraumatic. No conjunctival congestion or icterus. Patient has moist mucous membranes. NECK: Supple. Trachea midline. CHEST/LUNGS: Clear to auscultated bilaterally, breathing nonlabored. No wheezes crackles or rhonchi. HEART/CARDIOVASCULAR: Regular in rate and rhythm. S1 and S2 positive. ABDOMEN: Abdomen is soft, nontender. Patient has normal bowel sounds. SKIN: There is no rash. Warm and dry. NEURO: No focal motor deficit. Follows command. MUSCULOSKELETAL: No joint effusion or tenderness. EXTRIMITY: No edema, no cyanosis or clubbing. PSYCH: Cooperative. - Constitutional Vitals: Vital Signs - 12hr 07/31/21 07/31/21 07/31/21 03:34 08:01 09:00 Temperature 98.3 F 97.8 F Pulse Rate 53 L 60 Pulse Rate [ From Monitor] Pulse Rate [ Radial] Respiratory 16 18 Rate Blood Pressure 114/45 147/63 147/63 O2 Sat by Pulse 92 97 Oximetry 07/31/21 10:00 Temperature Pulse Rate 60 Pulse Rate [ 60 From Monitor] Pulse Rate [ 60 Radial] Respiratory 18 Rate Blood Pressure O2 Sat by Pulse 98 Oximetry - Labs CBC & Chem 7: 07/30/21 07:08 08/01/21 05:28 Labs: Abnormal lab results 07/31/21 Range/Units 04:18 Chloride 111.9 H (98-107) mmol/L Carbon Dioxide 18 L (22-30) mmol/L BUN 29 H (7-17) mg/dL Creatinine 1.8 H (0.6-1.2) mg/dL Calcium 7.9 L (8.4-10.2) mg/dL
[2021-07-31 19:09] LABS: Creatinine,Urine 245.9 mg/dL (0.1-20.0)
[2021-07-31] MEDS: TEMAZEPAM 15 MG CAP PO SCH (21:08)
[2021-08-01] MEDS: VANCOMYCIN 250 MG/10 ML ORAL LIQD PO SCH ×2 (00:34→06:22)
[2021-08-01] MEDS: oxyCODONE /ACETAMINOPHEN 5-325MG TAB PO PRN (05:01)
[2021-08-01] MEDS ORDERED: DOCUSATE SODIUM 100 MG CAP PO PRN (05:07)
[2021-08-01 06:02] LABS: Calcium 8.1 mg/dL (8.4-10.2)
[2021-08-01] MEDS: HEPARIN 5,000 UNIT/1 ML VIAL SUB-Q SCH ×2 (06:22→15:01)
[2021-08-01] MEDS: SODIUM CHLORIDE 0.9% 1000 ML 1,000 ML IV SCH (09:43)
[2021-08-01] MEDS: carvediloL 6.25 MG TAB PO SCH (09:43)
[2021-08-01] MEDS: hydrOXYzine HCL 25 MG TAB PO PRN (09:43)
[2021-08-01] MEDS: ASPIRIN 325 MG TAB PO SCH (09:43)
[2021-08-01] MEDS: FAMOTIDINE 10 MG TAB PO SCH (09:43)
--- NOTE | 2021-08-01 11:51 | Discharge Summary ---
Providers - Providers Date of Admission: 07/29/21 08:17 Date of discharge: 08/01/21 Attending physician: CIARA RESENDIZ 07/29/21 07:57 Consult to Physician [CONS] Routine Comment: Consulting Provider: HEATHER CHAN Physician Instructions: Reason For Exam: LEONEL 07/29/21 07:59 Consult to Dietitian/Nutrition [CONS] Routine Physician Instructions: Reason For Exam: Reason for Consult: Malnutrition 07/29/21 08:00 Consult to Physician [CONS] Routine Comment: Consulting Provider: JOYCE GALEANO Physician Instructions: Reason For Exam: CHF, STABLE 07/29/21 11:33 Consult to Dietitian/Nutrition [CONS] Routine Physician Instructions: Reason For Exam: Reason for Consult: Poor oral intake Primary care physician: PATHOLOGY LABORATORY TECHNOLOGIST Hospitalization Condition: Stable Hospital course: Patient is a 76-year-old female with a past medical history of CAD s/p CABG and PCI(02/2021), hypertension, who presented to [facility] with complaint of abdominal pain with associated diarrhea x1 day. On arrival to the ER the abdominal pain which she had initially described as 5/10 intensity has resolved. But she was however noted to have creatinine of 2.2 above the initial presentation at the hospital of 1.4. It also appears that she continued to take her losartan which was at the time she was discharged from the hospital told to stop due to mildly increased creatinine at the time. Patient was placed on IV fluid, Metformin was on hold, ordered stool for C. difficile studies and placed on vancomycin p.o. for possible C. difficile colitis. Her renal function improved, her diarrhea resolved. Her stool was never collected for C. difficile study, as her symptoms improved and there was no sign of systemic inflammatory syndrome such as elevated white count fever antibiotics were discontinued on admission. Patient was then discharged home in stable condition with outpatient follow-up. CT abdomen and pelvis: 1. Acute uncomplicated sigmoid diverticulitis. 2. Large simple cystic structure in the deep pelvis just left of midline. Differential considerations include a cystic mass of left ovarian origin or a cystic structure related to prior hysterectomy (i.e. old seroma or lymphocele). 3. Mild patchy bibasilar airspace disease. 4. Additional incidental/postoperative findings as above. Disposition: HOME / SELF CARE / HOMELESS Final Discharge Diagnosis (Prints w/discharge instructions): Abdominal pain possible underlying enteritis likely from C. difficile considering recent antibiotic. Acute on chronic kidney disease with vasomotor nephropathy- multifactorial also. Gastroenteritis. Metabolic Acidosis. Stable diastolic congestive heart failure. CAD status post CABG and PCI(02/2021) AICD([employer] 02/2021). s/p AAA repair(05/21/2021),. Anxiety disorder started recently due to multiple surgeries in the last 1 to 2-year. Left pelvis cystic mass Time spent for discharge: 34 minutes Core Measure Documentation - Palliative Care Palliative Care/ Comfort Measures: Not Applicable - Core Measures Any of the following diagnoses?: none Exam - Physical Exam Narrative exam: GENERAL: well-developed elderly -H[place]ian female lying on bed appeared to be in no discomfort. HEENT: Normocephalic. Atraumatic. No conjunctival congestion or icterus. Patient has moist mucous membranes. NECK: Supple. Trachea midline. CHEST/LUNGS: Clear to auscultated bilaterally, breathing nonlabored. No wheezes crackles or rhonchi. HEART/CARDIOVASCULAR: Regular in rate and rhythm. S1 and S2 positive. ABDOMEN: Abdomen is soft, nontender. Patient has normal bowel sounds. SKIN: There is no rash. Warm and dry. NEURO: No focal motor deficit. Follows command. MUSCULOSKELETAL: No joint effusion or tenderness. EXTRIMITY: No edema, no cyanosis or clubbing. PSYCH: Cooperative. - Constitutional Vitals: Temp Pulse Resp BP Pulse Ox 97.9 F 60 18 129/52 97 08/01/21 08:18 08/01/21 10:00 08/01/21 10:00 08/01/21 08:18 08/01/21 10:00 Plan Activity: advance as tolerated Weight Bearing Status: Weight Bear as Tolerated Diet: low fat, low salt Additional Instructions: Repeat BMP in 1 week. Follow-up with your PCP in 1 week. Continue to hold Metformin, can resume if further instructed by PCP when renal functions improves. Need pelvic ultrasound as outpatient for left pelvic cystic lesion. Follow up with: CHASE PAULSON MD [Primary Care Provider] - 3-5 Days CLAUDIO ESQUIVEL MD [Staff Physician] - 7 Days
[2021-08-01 12:38] VITALS: BP 124/58
== END 2021-08-01 16:13 | disposition home or self-care (01) | DRG 371 ==
LOC: EDSEX → ED 01:54 → 4A 08:17
PROVIDERS: ADMIT Internal Medicine; ATTEND Internal Medicine
DX: A04.72 Enterocolitis due to Clostridium difficile, not specified as recurrent (principal); N17.0 Acute kidney failure with tubular necrosis; I13.0 Hypertensive heart and chronic kidney disease with heart failure and stage 1 through stage 4 chronic kidney disease, or unspecified chronic kidney disease; I50.32 Chronic diastolic (congestive) heart failure; E87.2 Acidosis; Z16.20 Resistance to unspecified antibiotic; E86.0 Dehydration; I25.10 Atherosclerotic heart disease of native coronary artery without angina pectoris; Z95.810 Presence of automatic (implantable) cardiac defibrillator; F41.9 Anxiety disorder, unspecified; Z91.19 Patient's noncompliance with other medical treatment and regimen; N18.30 Chronic kidney disease, stage 3 unspecified; K57.90 Diverticulosis of intestine, part unspecified, without perforation or abscess without bleeding; R19.00 Intra-abdominal and pelvic swelling, mass and lump, unspecified site; Z95.1 Presence of aortocoronary bypass graft; Z88.5 Allergy status to narcotic agent; Z88.3 Allergy status to other anti-infective agents; Z79.84 Long term (current) use of oral hypoglycemic drugs
CPT/HCPCS: 36415; 74176; 80048; 80053; 81001; 82570; 82962; 83690; 83735; 84156; 84300; 85025; 93005; G0378; J3490; Q0162; Q0177; J1170; J1644; J2405; J3370; J7030